=== PATIENT | male | born 1965 | race Caucasian/White ===

== ENCOUNTER 2024-03-20 10:45 | Emergency (ER) | payer BC, SELFPAY ==
[2024-03-20 11:35] VITALS: BP 128/71; PULSE 65; RESP 19; TEMP 37.2; O2SAT 97; BMI 32.3
--- NOTE | 2024-03-20 12:03 | ED_ITS ---
Discharge Plan Disposition Patient Disposition: Home, Self-Care Condition: Good Prescriptions Prescriptions: New benzonatate 100 mg capsule 100 mg PO TID PRN (Reason: cough) Qty: 30 0RF No Action carvedilol 12.5 mg tablet 12.5 mg PO DAILY Patient Comments: TAKE 1 TABLET BY MOUTH TWICE DAILY lisinopril-hydrochlorothiazide 20-25 mg tablet 1 tab PO DAILY Patient Comments: TAKE 1 TABLET BY MOUTH DAILY testosterone cypionate 200 mg/mL oil 200 mg IM WEEKLY Patient Comments: ADMINISTER 1 ML IN THE MUSCLE EVERY 14 DAYS DIRECTED BY PRESCRIBER fluticasone propionate 50 mcg/actuation spray,suspension 2 spray INTRANASAL DAILY Patient Comments: SHAKE LIQUID AND USE 1 TO 2 SPRAYS IN EACH NOSTRIL DAILY NEEDED FOR ALLERGIES rosuvastatin 10 mg tablet 10 mg PO DAILY Patient Comments: TAKE 1 TABLET BY MOUTH DAILY potassium chloride 10 mEq tablet,ER particles/crystals 10 meq PO DAILY Patient Comments: TAKE 4 TABLETS BY MOUTH DAILY Wegovy 0.25 mg/0.5 mL pen injector 0.25 mg SQ DAILY Patient Comments: ADMINISTER 0.25 MG UNDER THE SKIN EVERY 7 DAYS DIRECTED amlodipine 5 mg Tablet 5 mg PO DAILY aspirin [Aspir-81] 81 mg Tablet,Delayed Release (Dr/Ec) 81 mg PO DAILY diclofenac sodium 75 mg Tablet,Delayed Release (Dr/Ec) 75 mg PO BID Referrals Follow up/Referrals: Goran Eagle [Primary Care Provider] - See instructions Activity Restrictions/Add. Instructions Additional Instructions/Restrictions: *Monitor Temp, Over the counter Motrin or Tylenol as directed/as needed Tylenol every 4 hours and Motrin every 6 hours (as long as your family doctor has told you that you can take it) for fever or pain. and straight to ER if unable to lower temp less than 101.0 after medication given *Warm salt water gargles may help to soothe the throat *Throat Lozenges? *Warm fluids like tea with honey may help to soothe the throat? *Sleep elevated *Humidifier/Vaporizer Follow up IMMEDIATELY for new or worsening symptoms or no Noticeable improvement over the next 48-72 hours. 911 for difficulty breathing or swallowing You were tested for today for COVID19 your test result should be back in the next 24hours, you may check your results on the [facility] My Health Portal Clinical Impressions Clinical Impression: Viral syndrome Instructions Patient Instructions: Sore Throat, COVID-19 Viral Test, DI for COVID-19 (Suspected or Confirmed ) Print Language Print Language: Urdu Discharge ED Provider: Ese Hurt [facility] [place] HPI General Stated complaint: positive at home covid test, cough, congestion Mode of Arrival: Ambulatory Source of Information: Patient Limitations: No Limitations Time Seen by Provider: 03/20/24 12:05 Description of Symptoms (Recalled from Triage Doc. by RN): PATIENT C/O COUGH, RUNNY NOSE AND LOW-GRADE FEVER, REPORTS A POSITIVE AT HOME COVID TEST HEENT Symptoms (Recalled from RN notes): Yes Resp Symptoms (Recalled from RN notes): Yes Skin Symptoms (Recalled from RN notes): No MS Symptoms (Recalled from RN notes): No Functional Status (Recalled from RN notes): WNL History of Present Illness Provider Complaint: Patient states that he has been having cough, nasal congestion and runny nose with body aches, states this morning he had a low grade fever so he took a home COVID test and yesterday it was negative but this morning his test showed positive so he came in to get checked and tested Related Data Home Medications ?Medication ?Instructions ?Recorded ?Confirmed amlodipine 5 mg tablet 5 mg PO DAILY 03/20/24 03/20/24 aspirin 81 mg tablet,delayed 81 mg PO DAILY 03/20/24 03/20/24 release carvedilol 12.5 mg tablet 12.5 mg PO DAILY 03/20/24 03/20/24 diclofenac sodium 75 mg 75 mg PO BID 03/20/24 03/20/24 tablet,delayed release fluticasone propionate 50 2 spray intranasal DAILY 03/20/24 03/20/24 mcg/actuation nasal spray,suspension lisinopril 20 1 tab PO DAILY 03/20/24 03/20/24 mg-hydrochlorothiazide 25 mg tablet potassium chloride 10 mEq 10 meq PO DAILY 03/20/24 03/20/24 tablet,extended release(part/cryst) rosuvastatin 10 mg tablet 10 mg PO DAILY 03/20/24 03/20/24 semaglutide (weight loss) 0.25 0.25 mg SQ DAILY 03/20/24 03/20/24 mg/0.5 mL subcutaneous pen injector (Wegovy) testosterone cypionate 200 mg/mL 200 mg IM WEEKLY 03/20/24 03/20/24 intramuscular oil Previous Rx's ?Medication ?Instructions ?Recorded benzonatate 100 mg capsule 100 mg PO TID PRN cough #30 caps 03/20/24 Allergies Allergy/AdvReac Type Severity Reaction Status Date / Time erythromycin base Allergy Verified 03/20/24 11:52 hydrocodone Allergy Verified 03/20/24 11:52 procaine [From Novocain] Allergy Verified 03/20/24 11:52 Worker's Comp Is this a Worker's Comp case?: No [facility] Disclaimer: The information contained in this section may have been updated after the patient was seen, as this information can be updated by other users. Medical History (Updated 03/20/24 @ 12:09 by Ese Hurt APRN) Kidney stone Atrial fibrillation Hyperlipidemia Hypertension Surgical History (Updated 03/20/24 @ 12:00 by Jenna Morton RN) History of cholecystectomy Social History Smoking Status: Unknown if ever smoked alcohol intake: never current occupational status: retired Travel in the last 8 weeks: None ROS Obtained: Yes All systems reviewed & no additional complaints except as documented and Yes Systems reviewed as appropriate & no additional complaints except as documented Constitutional Constitutional: Reports system reviewed and no additional complaints, except as documented, Reports as per HPI, Reports body ache, Reports chills, Reports fever(s) and Reports headache(s) ENT Ears, Nose, Mouth, and Throat: Reports system reviewed and no additional complaints, except as documented, Reports as per HPI, Reports headache(s), Reports nasal congestion and Reports nasal discharge Cardiovascular Cardiovascular: Reports system reviewed and no additional complaints, except as documented and Reports as per HPI Respiratory Respiratory: Reports system reviewed and no additional complaints, except as documented, Reports as per HPI and Reports cough Gastrointestinal Gastrointestingal: Reports system reviewed and no additional complaints, except as documented and as per HPI Neurologic Neurologic: Reports headache(s) Physical Exam General General appearance: alert and in no apparent distress ENT ENT exam: Present mucous membranes moist Respiratory Respiratory exam: Present normal lung sounds bilaterally; Absent respiratory distress or wheezes Cardiovascular Cardiovascular exam: Present regular rate, normal rhythm and normal heart sounds Neurological Exam Neurological exam: Present alert, oriented X3 and normal gait Medical Decision Making Selvin Inquiry Pt receiving controlled substance: No Selvin was queried for this patient: No Vital Signs: 03/20/24 11:35 Temperature 98.9 F Temperature Source Oral Pulse Rate [Left Brachial] 65 Respiratory Rate 19 Blood Pressure [Left Arm] 128/71 Blood Pressure Mean [Left Arm] 90 Blood Pressure Source [Left Arm] Automatic Cuff Blood Pressure Position [Left Arm] Sitting 02 Sat by Pulse Oximetry 97 Oxygen Delivery Method Room Air Orders (Tests/Meds): ORDERS Category Date Time Status Covid-19 Nasal PCR ([facility]) Routine Lab 03/20/24 12:01 Ordered
[2024-03-20 12:12] VITALS: BP 128/71; PULSE 65; RESP 19; TEMP 37.2; O2SAT 97
== END 2024-03-20 12:16 | disposition home or self-care (01) ==
PROVIDERS: Emergency Provider Nurse Practitioner; PCP Internal Medicine
DX: U07.1 COVID-19 (principal); R50.9 Fever, unspecified; R05.9 Cough, unspecified; R09.81 Nasal congestion
CPT/HCPCS: 87635; 99204; 99212; G0463